=== PATIENT | female | born 1960 | race Caucasian/White ===

== ENCOUNTER 2017-01-10 15:29 | Emergency (ER) | payer MEDICAID ==
[~2017-01-10] VITALS: Ht 157.5 cm; Wt 59.0 kg
[2017-01-10 22:00] VITALS: BP 128/66
== END 2017-01-10 22:30 | disposition home or self-care (01) ==
LOC: ER 22:15
DX: L03.011 Cellulitis of right finger (principal)
CPT/HCPCS: 99283

== ENCOUNTER 2019-07-19 14:46 | Inpatient (IN) | payer MEDICAID ==
[~2019-07-19] VITALS: Ht 157.5 cm; Wt 61.2 kg
[2019-07-19] MEDS ORDERED: SODIUM CHLORIDE 0.9% 1,000 ML IV ONE (16:33)
[2019-07-19] MEDS ORDERED: MORPHINE SULFATE 4 MG/ML CPJ (NOT FOR IM USE) IV STA (16:33)
[2019-07-19] MEDS ORDERED: ONDANSETRON HCL 4MG/2ML INJ IV STA (16:33)
[2019-07-19] MEDS ORDERED: NITROGLYCERIN OINT 1GM/INCH UDPKT TD ONE (17:00)
[2019-07-19] MEDS ORDERED: LORAZEPAM 0.5MG TABLET PO ONE (17:15)
[2019-07-19 17:29] LABS: BASOPHILS % 1.1 % (0.0-2.0); EOSINOPHILS % 1.8 % (0.0-5.0); HEMATOCRIT. 37.8 % (36.0-48.0); HEMOGLOBIN. 12.8 g/dL (12.0-16.0); LYMPHOCYTES % 25.7 % (20.0-50.0); MEAN CORPUSCULAR VOLUME 97.5 fL (81.0-99.0); MEAN PLATELET VOLUME 8.4 fl (7.4-10.4); MONOCYTES % 8.4 % (2.0-8.0); PLATELET 284 x1000/uL (130-400); RED BLOOD CELL COUNT 3.88 mill/uL (4.2-5.4); RED CELL DISTRIBUTION WIDTH 13.1 % (11.6-14.6)
[2019-07-19 17:32] LABS: CHLORIDE 112 mEq/L (98-107)
[2019-07-19 21:43] VITALS: BP 133/77
[2019-07-19] MEDS ORDERED: NAPR500T7 MT (21:52)
[2019-07-19] MEDS ORDERED: ONDANSETRON HCL 4MG/2ML INJ IV PRN (23:30)
[2019-07-19] MEDS ORDERED: CLONIDINE 0.1MG TABLET PO PRN (23:30)
[2019-07-19] MEDS ORDERED: ACETAMINOPHEN 325MG TABLET PO PRN (23:30)
[2019-07-20] MEDS: LORAZEPAM 1MG TABLET PO PRN ×2 (00:13→11:59)
[2019-07-20 00:25] VITALS: BP 133/77
[2019-07-20 00:28] VITALS: BP 121/57
[2019-07-20] MEDS: HYDROCODONE/ACETAMINOPHEN 5/325MG TABLET PO PRN ×2 (02:22→08:43)
[2019-07-20 04:00] VITALS: BP 107/47
[2019-07-20 07:10] LABS: CHLORIDE 109 mEq/L (98-107)
[2019-07-20 07:32] LABS: LDL CHOLESTEROL 92 mg/dL (5-100)
[2019-07-20 07:33] LABS: CREATINE KINASE 80 IU/L (26-192)
[2019-07-20 07:34] LABS: HDL CHOLESTEROL 54 mg/dL (40-59)
[2019-07-20 07:36] LABS: CREATINE KINASE MB FRACTION 1.2 ng/mL (0.5-3.6)
[2019-07-20 08:00] VITALS: BP 114/65
[2019-07-20 08:00] LABS: BASOPHILS % 1.5 % (0.0-2.0); HEMATOCRIT. 36.6 % (36.0-48.0); HEMOGLOBIN. 12.6 g/dL (12.0-16.0); LYMPHOCYTES % 29.7 % (20.0-50.0); MEAN CORPUSCULAR HEMOGLOBIN 33.3 pg (28.0-32.0); MEAN CORPUSCULAR VOLUME 96.9 fL (81.0-99.0); MEAN PLATELET VOLUME 8.6 fl (7.4-10.4); MONOCYTES % 8.9 % (2.0-8.0); NEUTROPHILS % 55.9 % (40.0-76.0); PLATELET 266 x1000/uL (130-400); RED BLOOD CELL COUNT 3.78 mill/uL (4.2-5.4)
[2019-07-20] MEDS ORDERED: REGADENOSON 0.4 MG/5 ML IV ONE (08:24)
[2019-07-20] MEDS: ENOXAPARIN 40MG/0.4ML SYR SUBCUT SCH ×2 (08:43→08:53)
[2019-07-20] MEDS ORDERED: ASPIRIN 81MG TABLET PO SCH (10:45)
[2019-07-20 12:00] VITALS: BP 115/49
[2019-07-20 15:59] LABS: CREATINE KINASE 75 IU/L (26-192)
[2019-07-20 16:00] VITALS: BP 126/48
[2019-07-20 16:00] LABS: CREATINE KINASE MB FRACTION 1.2 ng/mL (0.5-3.6); T4 FREE 0.96 ng/dL (0.76-1.46)
[2019-07-20] MEDS ORDERED: ZOLPIDEM TARTRATE 5MG TABLET PO ONE (16:45)
[2019-07-20] MEDS ORDERED: ZOLP5TAB2 MT ×2 (17:17)
[2019-07-20] MEDS ORDERED: METOPROLOL TARTRATE 25MG TABLET PO SCH (21:00)
[2019-07-20] MEDS ORDERED: ZOLPIDEM TARTRATE 5MG TABLET PO PRN (21:00)
== END 2019-07-20 18:05 | disposition left against medical advice (07) | DRG 198 ==
LOC: ER 14:46 → 6WST 18:11 → EDBEDREQTM 18:13 → EDBEDREQ 18:13 → ENRESERV 20:15
PROVIDERS: ADMIT Internal Medicine; ATTEND Internal Medicine
DX: I24.9 Acute ischemic heart disease, unspecified (principal); E44.1 Mild protein-calorie malnutrition; E87.8 Other disorders of electrolyte and fluid balance, not elsewhere classified; E03.9 Hypothyroidism, unspecified; F41.9 Anxiety disorder, unspecified; G47.00 Insomnia, unspecified; M75.101 Unspecified rotator cuff tear or rupture of right shoulder, not specified as traumatic; F51.04 Psychophysiologic insomnia; Z53.29 Procedure and treatment not carried out because of patient's decision for other reasons; Z68.24 Body mass index [BMI] 24.0-24.9, adult
CPT/HCPCS: 36415; 71045; 80048; 80061; 82550; 82553; 83880; 84439; 84443; 84480; 84484; 85379; 93005; 93306; 96374; 99285; J1650; J2270; J2405; J2785; J7030

== ENCOUNTER 2024-08-08 16:00 | Emergency (ER) | payer MEDICARE, MEDICAID ==
[~2024-08-08] VITALS: Ht 160 cm; Wt 59.0 kg
[~2024-08-08 16:00] MED LIST: NAPR-1486 MT; ZOLP5TAB2 MT
[2024-08-08 16:10] VITALS: O2SAT 97
[2024-08-08] MEDS ORDERED: ACETAMINOPHEN 500MG TABLET PO ONE (17:45)
[2024-08-08] MEDS: ACETAMINOPHEN 500MG TABLET PO NR (19:51)
[2024-08-08 20:08] VITALS: BP 151/71; PULSE 78; RESP 16; TEMP 36.94740; O2SAT 99
== END 2024-08-08 20:14 | disposition home or self-care (01) ==
LOC: ER 16:00
DX: S09.90XA Unspecified injury of head, initial encounter (principal); Z79.1 Long term (current) use of non-steroidal anti-inflammatories (NSAID); W01.0XXA Fall on same level from slipping, tripping and stumbling without subsequent striking against object, initial encounter; Y93.89 Activity, other specified; Y92.511 Restaurant or cafe as the place of occurrence of the external cause; Y99.8 Other external cause status
CPT/HCPCS: 73562; 99284